=== PATIENT | female | born 1955 | race Two or more races ===

== ENCOUNTER 2024-02-24 01:15 | Inpatient (IN) | payer OTHER ==
[~2024-02-24] VITALS: Ht 157.5 cm; Wt 59.9 kg
[2024-02-24] MEDS ORDERED: PRISTIQ25 MG PO (02:05)
[2024-02-24] MEDS ORDERED: SYNTHROID75 MCG PO (02:05)
[2024-02-24] MEDS ORDERED: DIOVAN40 MG PO (02:05)
[2024-02-24] MEDS ORDERED: PEPCID AC20 MG (02:05)
[2024-02-24] MEDS ORDERED: PROTONIX20 MG PO (02:05)
[2024-02-24] MEDS ORDERED: ESTAZOLAM2 MG PO (02:06)
[2024-02-24] MEDS ORDERED: BUSPIRONE HCL15 MG PO (02:06)
[2024-02-24] MEDS ORDERED: TRAZODONE HCL150 MG PO (02:07)
[2024-02-24] MEDS ORDERED: 0.9 % SODIUM CHLORIDE 1,000 ML IV ONE (04:30)
[2024-02-24 05:16] LABS: HEMATOCRIT 35.7 % (36.0-45.00); MEAN CELL VOLUME 84.3 fL (80.00-100.00); MEAN CORPUSCULAR HGB CONC 33.2 g/dl (32.0-36.0); RED BLOOD COUNT 4.24 M/uL (4.00-6.00); RED CELL DISTRIBUTION WIDTH 14.9 % (11.5-14.5)
[2024-02-24 05:18] LABS: HEMOGLOBIN 11.9 g/dL (12.0-15.00); PLATELET COUNT 516 K/uL (150-450)
[2024-02-24 05:27] LABS: PARTIAL THROMBOPLASTIN TIME 23.3 SECONDS (22.0-34.0); PROTHROMBIN TIME 10.9 SECONDS (9.0-11.5)
[2024-02-24 05:30] LABS: ALBUMIN 2.9 gm/dL (3.4-5.0); BILIRUBIN TOTAL 0.24 mg/dL (0.3-1.2); CALCIUM 10.3 mg/dL (8.5-10.1); CREATININE SERUM 0.62 mg/dL (0.55-1.02); GFR 95.16; POTASSIUM 3.59 mEq/L (3.5-5.1); TOTAL PROTEIN 7.9 gm/dL (6.4-8.2)
[2024-02-24 05:51] LABS: URINE APPEARANCE Cloudy; URINE BILIRRUBIN Negative (NEGATIVE); URINE BLOOD Moderate; URINE COLOR Yellow; URINE GLUCOSE Negative (NEGATIVE); URINE KETONE Negative (NEGATIVE); URINE LEUKOCYTE Large; URINE NITRATE Negative; URINE PROTEIN 30 (NEGATIVE)
[2024-02-24 05:54] LABS: URINE EPITHELIAL CELLS 15.9 uL (0.0-38.8); URINE RBC 256.2 uL (0.0-20.8)
[2024-02-24 06:01] LABS: URINE CAST 0.76 uL (0.0-1.40)
[2024-02-24] MEDS ORDERED: CEFTRIAXONE SODIUM 1,000 MG VIAL IV STA (06:27)
[2024-02-24] MEDS ORDERED: FAMOTIDINE/PF 20 MG/2 ML VIAL IV SCH (13:41)
[2024-02-24] MEDS ORDERED: MORPHINE SULFATE 2 MG/ML CARTRIDGE IV PRN (13:45)
[2024-02-24] MEDS ORDERED: RINGERS SOLUTION,LACTATED 1,000 ML IV SCH (13:45)
[2024-02-24] MEDS ORDERED: PIPERACILLIN/TAZOBACTAM SODIUM 3.375 GM in DEXTROSE 5 % IN WATER 100 ML IV SCH (14:00)
[2024-02-24] MEDS ORDERED: VANCOMYCIN HCL 1,000 MG VIAL IV STA (14:02)
[2024-02-24] MEDS ORDERED: BUSPIRONE HCL 15 MG TABLET PO STA (16:21)
[2024-02-24] MEDS ORDERED: PANTOPRAZOLE SODIUM 40 MG TABLET.DR PO SCH (16:23)
[2024-02-24] MEDS ORDERED: AA 4.25%/CAL/LYTES/DEXT 5% 1,000 ML PERIFERAL SCH (17:00)
[2024-02-24] MEDS ORDERED: TRAZODONE HCL 50 MG TABLET PO SCH (21:00)
[2024-02-24] MEDS ORDERED: TEMAZEPAM 15 MG CAPSULE PO SCH (21:00)
[2024-02-25] MEDS ORDERED: LEVOTHYROXINE SODIUM 75 MCG TABLET PO SCH (06:00)
[2024-02-25] MEDS ORDERED: LOSARTAN POTASSIUM 25 MG TABLET PO SCH (09:00)
[2024-02-25] MEDS ORDERED: BUSPIRONE HCL 15 MG TABLET PO SCH ×2 (09:00→21:29)
[2024-02-25 09:09] VITALS: BP 131/68; O2SAT 97
[2024-02-25] MEDS ORDERED: LACTOBACILLUS ACIDOPHILUS 1 CAP CAP PO SCH (14:10)
[2024-02-25 16:00] VITALS: BP 133/70; O2SAT 96
[2024-02-26 00:35] VITALS: BP 126/67; O2SAT 93
[2024-02-26 09:05] VITALS: BP 115/65; O2SAT 97
[2024-02-26 11:44] LABS: HEMATOCRIT 30.9 % (36.0-45.00); HEMOGLOBIN 10.4 g/dL (12.0-15.00); MEAN CELL VOLUME 84.9 fL (80.00-100.00); MEAN CORPUSCULAR HEMOGLOBIN 28.5 pg (27.00-32.0); MEAN CORPUSCULAR HGB CONC 33.5 g/dl (32.0-36.0); PLATELET COUNT 410 K/uL (150-450); RED BLOOD COUNT 3.64 M/uL (4.00-6.00); RED CELL DISTRIBUTION WIDTH 14.7 % (11.5-14.5)
[2024-02-26] MEDS ORDERED: MEROPENEM 500 MG/VIAL VIAL IV SCH (12:00)
[2024-02-26 12:10] LABS: ALBUMIN 2.5 gm/dL (3.4-5.0); BILIRUBIN TOTAL 0.45 mg/dL (0.3-1.2); CREATININE SERUM 0.49 mg/dL (0.55-1.02); GFR 124.85; GLOBULINA 3.8 G/DL (2.4-3.5); MAGNESIUM 1.7 mg/dL (1.8-2.4); PHOSPHOROUS 4.2 mg/dL (2.5-4.9); POTASSIUM 4.37 mEq/L (3.5-5.1); TOTAL PROTEIN 6.3 gm/dL (6.4-8.2)
[2024-02-26 18:04] VITALS: BP 142/69; O2SAT 98
[2024-02-26] MEDS ORDERED: MAGNESIUM SULFATE IN WATER 50 ML IV ONE (21:00)
[2024-02-27 05:12] VITALS: BP 120/66; O2SAT 97
[2024-02-27 06:24] LABS: HEMATOCRIT 28.8 % (36.0-45.00); HEMOGLOBIN 9.9 g/dL (12.0-15.00); MEAN CELL VOLUME 84.1 fL (80.00-100.00); MEAN CORPUSCULAR HEMOGLOBIN 28.8 pg (27.00-32.0); MEAN CORPUSCULAR HGB CONC 34.3 g/dl (32.0-36.0); PLATELET COUNT 387 K/uL (150-450); RED BLOOD COUNT 3.42 M/uL (4.00-6.00); RED CELL DISTRIBUTION WIDTH 14.5 % (11.5-14.5)
[2024-02-27 08:20] LABS: ALBUMIN 2.3 gm/dL (3.4-5.0); BILIRUBIN TOTAL 0.34 mg/dL (0.3-1.2); CALCIUM 9.2 mg/dL (8.5-10.1); CREATININE SERUM 0.43 mg/dL (0.55-1.02); GFR 145.16; GLOBULINA 3.6 G/DL (2.4-3.5); POTASSIUM 3.98 mEq/L (3.5-5.1); TOTAL PROTEIN 5.9 gm/dL (6.4-8.2)
[2024-02-27 08:22] VITALS: BP 133/67; O2SAT 96
[2024-02-27] MEDS ORDERED: PANTOPRAZOLE SODIUM 40 MG/VIAL VIAL IV SCH (09:00)
[2024-02-27 15:37] LABS: URINE APPEARANCE Clear; URINE BILIRRUBIN Negative (NEGATIVE); URINE BLOOD Negative; URINE COLOR Yellow; URINE GLUCOSE Negative (NEGATIVE); URINE KETONE Negative (NEGATIVE); URINE LEUKOCYTE Large; URINE NITRATE Negative; URINE PROTEIN Negative (NEGATIVE); URINE UROBILINOGEN 0.2 E.U./dl
[2024-02-27 15:42] LABS: URINE BACTERIA 65.4 uL (0.0-1933); URINE EPITHELIAL CELLS 15.9 uL (0.0-38.8); URINE RBC 10.5 uL (0.0-20.8); URINE WBC 372.7 uL (0.0-23.2)
[2024-02-27 16:24] VITALS: BP 149/73
[2024-02-27] MEDS ORDERED: PATIENTS OWN MEDICATION (MEDICAMENTO EN PISO) PO SCH (21:00)
[2024-02-28 01:56] VITALS: BP 120/60; BP 152/64; O2SAT 97; O2SAT 98
[2024-02-28 07:57] VITALS: BP 137/69; O2SAT 95
[2024-02-28] MEDS ORDERED: LOSARTAN POTASSIUM 50 MG TABLET PO SCH (09:00)
[2024-02-28] MEDS ORDERED: ENOXAPARIN SODIUM 40 MG/0.4 ML SYRINGE SUBCUTANEO SCH (09:00)
[2024-02-28] MEDS ORDERED: FLUCONAZOLE 150 MG TABLET PO ONE (12:15)
[2024-02-28 17:08] VITALS: BP 158/75
[2024-02-28] MEDS ORDERED: NYSTATIN 100,000 UNITS/ML ML PO SCH (21:21)
[2024-02-29] VITALS: BP 148/74; O2SAT 95
[2024-02-29] MEDS ORDERED: DIATRIZOATE MEGLUMINE, SODIUM 30 ML BOTTLE PO NR (06:00)
[2024-02-29] MEDS ORDERED: IRBESARTAN 150 MG TABLET PO SCH (09:00)
[2024-02-29 10:01] VITALS: BP 176/89; O2SAT 97
[2024-02-29] MEDS ORDERED: AMLODIPINE BESYLATE 5 MG TABLET PO SCH (12:11)
[2024-02-29 16:08] LABS: INR 1.08; PARTIAL THROMBOPLASTIN TIME 31.8 SECONDS (22.0-34.0); PROTHROMBIN TIME 11.7 SECONDS (9.0-11.5)
[2024-02-29 16:18] LABS: ALBUMIN 2.5 gm/dL (3.4-5.0); BILIRUBIN TOTAL 0.38 mg/dL (0.3-1.2); BILIRUBIN,CONJUGATED 0.16 mg/dL (0.0-0.2); BILIRUBIN,UNCONJUGATED 0.22 mg/dL (0.0-0.6); CALCIUM 9.4 mg/dL (8.5-10.1); CHOL HDL RATIO 5.3 (0-5.0); CREATININE SERUM 0.44 mg/dL (0.55-1.02); GFR 141.36; GLOBULINA 3.9 G/DL (2.4-3.5); MAGNESIUM 1.9 mg/dL (1.8-2.4); POTASSIUM 3.94 mEq/L (3.5-5.1); TOTAL PROTEIN 6.4 gm/dL (6.4-8.2)
[2024-02-29 17:32] VITALS: BP 182/63
[2024-02-29 17:47] LABS: UREA CLEARANCE 35.3 ML/MIN
[2024-02-29] MEDS ORDERED: hydrALAZINE HCL 20 MG VIAL IV PRN (19:45)
[2024-02-29] MEDS ORDERED: AMLODIPINE BESYLATE 10 MG TABLET PO ONE (20:45)
[2024-03-01 00:44] VITALS: BP 140/56; O2SAT 95
[2024-03-01 06:38] LABS: HEMATOCRIT 28.8 % (36.0-45.00); MEAN CELL VOLUME 82.2 fL (80.00-100.00); MEAN CORPUSCULAR HEMOGLOBIN 28.5 pg (27.00-32.0); MEAN CORPUSCULAR HGB CONC 34.7 g/dl (32.0-36.0); PLATELET COUNT 382 K/uL (150-450); RED CELL DISTRIBUTION WIDTH 14.5 % (11.5-14.5)
[2024-03-01 07:02] LABS: ERYTHROCYTE SEDIMENTATION RATE 77 mm/hr
[2024-03-01 07:19] LABS: ALBUMIN 2.4 gm/dL (3.4-5.0); BILIRUBIN TOTAL 0.32 mg/dL (0.3-1.2); CALCIUM 9.4 mg/dL (8.5-10.1); CREATININE SERUM 0.38 mg/dL (0.55-1.02); GFR 167.42; GLOBULINA 3.5 G/DL (2.4-3.5); POTASSIUM 3.94 mEq/L (3.5-5.1); TOTAL PROTEIN 5.9 gm/dL (6.4-8.2)
[2024-03-01 07:20] LABS: C-REACTIVE PROTEIN 8.1 MG/DL (0.00-0.29)
[2024-03-01 08:42] VITALS: BP 113/65
[2024-03-01] MEDS ORDERED: AMLODIPINE BESYLATE 10 MG TABLET PO SCH (09:00)
[2024-03-01] MEDS ORDERED: AMLODIPINE BESYLATE 5 MG TABLET PO SCH (09:00)
[2024-03-01] MEDS ORDERED: AMINO ACIDS/PROTEIN HYDROLYS 30 ML BLIST.PACK PO SCH (13:00)
[2024-03-01 16:41] VITALS: BP 142/65; O2SAT 98
[2024-03-02 00:46] VITALS: BP 145/73; O2SAT 92
[2024-03-02] MEDS ORDERED: BENZONATATE 100 MG CAPSULE PO SCH (01:00)
[2024-03-02 09:04] VITALS: BP 136/71; O2SAT 99
[2024-03-02 16:34] VITALS: BP 146/70; O2SAT 99
[2024-03-03 02:00] VITALS: BP 160/75; O2SAT 97
[2024-03-03 07:20] LABS: ALBUMIN 2.4 gm/dL (3.4-5.0); BILIRUBIN TOTAL 0.3 mg/dL (0.3-1.2); CALCIUM 9.1 mg/dL (8.5-10.1); CREATININE SERUM 0.38 mg/dL (0.55-1.02); GFR 167.42; GLOBULINA 3.8 G/DL (2.4-3.5); MAGNESIUM 2.1 mg/dL (1.8-2.4); POTASSIUM 4.08 mEq/L (3.5-5.1); TOTAL PROTEIN 6.2 gm/dL (6.4-8.2)
[2024-03-03 08:22] VITALS: BP 126/67; O2SAT 97
[2024-03-03] MEDS ORDERED: MOMETASONE FUROATE 17GM SPRAY NASAL SCH (09:57)
[2024-03-03] MEDS ORDERED: LORATADINE 10 MG TABLET PO NR (11:00)
[2024-03-03 18:11] VITALS: BP 146/80; O2SAT 98
[2024-03-04 01:23] VITALS: BP 121/60
[2024-03-04 09:00] VITALS: BP 127/66; O2SAT 96
[2024-03-04] MEDS ORDERED: LORATADINE 10 MG TABLET PO SCH (09:00)
[2024-03-04 09:49] LABS: HEMOGLOBIN 10.4 g/dL (12.0-15.00); MEAN CELL VOLUME 83.2 fL (80.00-100.00); MEAN CORPUSCULAR HGB CONC 33.7 g/dl (32.0-36.0); PLATELET COUNT 347 K/uL (150-450); RED BLOOD COUNT 3.73 M/uL (4.00-6.00); RED CELL DISTRIBUTION WIDTH 14.2 % (11.5-14.5)
[2024-03-04] MEDS ORDERED: INTESTINEX680 M1 PO (14:52)
[2024-03-04] MEDS ORDERED: ZYRTEC10 M3 PO (14:54)
[2024-03-04] MEDS ORDERED: NASONEX 24HR AL17 ML NASAL (14:55)
== END 2024-03-04 17:45 | disposition home or self-care (01) | DRG 392 ==
LOC: ER 01:16 → MEDI 17:02 → MEDJ 17:02 → SEC-K 17:59 → MEDI 02-25 03:00
PROVIDERS: General Practice; Internal Medicine; Student in an Organized Health Care Education/Training Program; ADMIT Internal Medicine; ATTEND Internal Medicine
PROC: BW21YZZ Computerized Tomography (CT Scan) of Abdomen and Pelvis using Other Contrast (ICD-10-PCS; principal; 2024-02-24)
PROC: 02HV33Z Insertion of Infusion Device into Superior Vena Cava, Percutaneous Approach (ICD-10-PCS; 2024-02-25)
PROC: BW21YZZ Computerized Tomography (CT Scan) of Abdomen and Pelvis using Other Contrast (ICD-10-PCS; 2024-02-29)
DX: K57.20 Diverticulitis of large intestine with perforation and abscess without bleeding (principal); N32.1 Vesicointestinal fistula; D72.829 Elevated white blood cell count, unspecified; D64.9 Anemia, unspecified; D75.839 Thrombocytosis, unspecified; E83.52 Hypercalcemia; I10 Essential (primary) hypertension; E03.9 Hypothyroidism, unspecified; F43.21 Adjustment disorder with depressed mood; B37.9 Candidiasis, unspecified; N93.9 Abnormal uterine and vaginal bleeding, unspecified

== ENCOUNTER 2024-05-27 11:15 | Inpatient (IN) | payer OTHER ==
[~2024-05-27] VITALS: Ht 61 cm; Wt 59.0 kg
[~2024-05-27 11:15] MED LIST: BUSPIRONE HCL15 MG PO; DIOVAN40 MG PO; ESTAZOLAM2 MG PO; INTESTINEX680 M1 PO; NASONEX 24HR AL17 ML NASAL; PEPCID AC20 MG; PRISTIQ25 MG PO; PROTONIX20 MG PO; SYNTHROID75 MCG PO; TRAZODONE HCL150 MG PO; ZYRTEC10 M3 PO
[2024-05-27] MEDS ORDERED: CRESTOR40 MG PO (13:45)
[2024-06-02] MEDS ORDERED: CEFTRIAXONE SODIUM 2,000 MG VIAL ONE (10:50)
[2024-06-02] MEDS ORDERED: LIDOCAINE HCL 1%/EPINEPHRINE 20ML VIAL IJ ONE ×2 (10:50→12:25)
[2024-06-02] MEDS ORDERED: METRONIDAZOLE/SODIUM CHLORIDE 500 MG/100 ML PIGGYBACK IV ONE (10:50)
[2024-06-02] MEDS ORDERED: VALSARTAN-HCTZ1 EAC3 (11:18)
[2024-06-02] MEDS ORDERED: DESVENLAFAXINE50 M3 (11:18)
[2024-06-02] MEDS ORDERED: PANTOPRAZOLE SO40 MG (11:18)
[2024-06-02] MEDS ORDERED: CLORAZEPATE D3.75 MG (11:18)
[2024-06-02] MEDS ORDERED: ONDANSETRON HCL 2 MG/ML VIAL IV PRN (15:00)
[2024-06-02] MEDS ORDERED: 0.9 % SODIUM CHLORIDE 1,000 ML IV SCH (15:00)
[2024-06-02] MEDS ORDERED: MORPHINE SULFATE 4 MG/ML CARTRIDGE IV PRN (15:00)
[2024-06-02] MEDS ORDERED: OxyCODONE HCL 5 MG TABLET (ROXICODONE) PO PRN (15:00)
[2024-06-02] MEDS ORDERED: DEXTROSE 50 % IN WATER 0.5 G/ML DISP.SYRIN IV PRN (15:00)
[2024-06-02] MEDS ORDERED: MORPHINE SULFATE 4 MG/ML VIAL IV ONE ×3 (15:45→16:45)
[2024-06-02 16:17] LABS: HEMATOCRIT 31.7 % (36.0-45.00); HEMOGLOBIN 10.7 g/dL (12.0-15.00); MEAN CORPUSCULAR HEMOGLOBIN 28.7 pg (27.00-32.0); MEAN CORPUSCULAR HGB CONC 33.7 g/dl (32.0-36.0); PLATELET COUNT 263 K/uL (150-450); RED BLOOD COUNT 3.73 M/uL (4.00-6.00); RED CELL DISTRIBUTION WIDTH 15.3 % (11.5-14.5)
[2024-06-02 16:46] LABS: ALBUMIN 2.9 gm/dL (3.4-5.0); CALCIUM 9.2 mg/dL (8.5-10.1); CREATININE SERUM 0.61 mg/dL (0.55-1.02); GFR 96.68; PHOSPHOROUS 3.9 mg/dL (2.5-4.9); POTASSIUM 3.3 mEq/L (3.5-5.1)
[2024-06-02] MEDS ORDERED: POLYETHYLENE GLYCOL 3350 17 GM BLIST.PACK PO SCH (17:00)
[2024-06-02] MEDS ORDERED: GABAPENTIN 300 MG CAPSULE PO SCH (17:00)
[2024-06-02] MEDS ORDERED: HYOSCYAMINE SULFATE 0.125 MG TAB.SUBL SL SCH (17:00)
[2024-06-02 17:03] LABS: MAGNESIUM 1.3 mg/dL (1.8-2.4)
[2024-06-02] MEDS ORDERED: ACETAMINOPHEN 500 MG GEL..CAP PO SCH (20:00)
[2024-06-02] MEDS ORDERED: FAMOTIDINE/PF 20 MG/2 ML VIAL IV PUSH SCH (21:00)
[2024-06-02] MEDS ORDERED: CELECOXIB 200 MG CAPSULE PO SCH (21:00)
[2024-06-02] MEDS ORDERED: ESTAZOLAM PO SCH (23:45)
[2024-06-03 00:50] VITALS: BP 135/66; O2SAT 100
[2024-06-03] MEDS ORDERED: MORPHINE SULFATE 4 MG/ML CARTRIDGE IV ONE (07:15)
[2024-06-03 08:00] VITALS: BP 117/71; O2SAT 100
[2024-06-03] MEDS ORDERED: MAGNESIUM SULFATE IN WATER 2 GM/50 ML PIGGYBAG IV SCH ×2 (08:00→12:00)
[2024-06-03] MEDS ORDERED: MAGNESIUM SULFATE 50% 1,000 MG/2 ML VIAL IV SCH (08:00)
[2024-06-03] MEDS ORDERED: PANTOPRAZOLE SODIUM 40 MG TABLET.DR PO SCH (09:00)
[2024-06-03] MEDS ORDERED: CYCLOBENZAPRINE HCL 5 MG TABLET PO SCH (09:00)
[2024-06-03] MEDS ORDERED: LIDOCAINE 1 EACH ADH..PATCH TOP SCH (09:00)
[2024-06-03] MEDS ORDERED: POTASSIUM CHLORIDE IN 0.9%NACL 1,000 ML IV NR (12:00)
[2024-06-03] MEDS ORDERED: POTASSIUM CHLORIDE/D5-0.45NACL 1,000 ML IV NR (12:00)
[2024-06-03 12:46] LABS: HEMATOCRIT 33.4 % (36.0-45.00); HEMOGLOBIN 11.5 g/dL (12.0-15.00); MEAN CELL VOLUME 83.3 fL (80.00-100.00); MEAN CORPUSCULAR HEMOGLOBIN 28.8 pg (27.00-32.0); MEAN CORPUSCULAR HGB CONC 34.5 g/dl (32.0-36.0); PLATELET COUNT 259 K/uL (150-450); RED BLOOD COUNT 4.01 M/uL (4.00-6.00); RED CELL DISTRIBUTION WIDTH 15.3 % (11.5-14.5)
[2024-06-03 13:58] LABS: ALBUMIN 2.9 gm/dL (3.4-5.0); CREATININE SERUM 0.6 mg/dL (0.55-1.02); GFR 98.55; PHOSPHOROUS 4.2 mg/dL (2.5-4.9); POTASSIUM 3.59 mEq/L (3.5-5.1)
[2024-06-03 14:20] LABS: MAGNESIUM 1.2 mg/dL (1.8-2.4)
[2024-06-03 16:04] VITALS: BP 93/55; O2SAT 95
[2024-06-03] MEDS ORDERED: PATIENTS OWN MEDICATION (MEDICAMENTO EN PHA) PO SCH (17:00)
[2024-06-03] MEDS ORDERED: ENOXAPARIN SODIUM 40 MG/0.4 ML SYRINGE SUBCUTANEO SCH (17:00)
[2024-06-03] MEDS ORDERED: PATIENTS OWN MEDICATION (MEDICAMENTO EN PISO) PO SCH (21:00)
[2024-06-04 01:00] VITALS: BP 104/51; O2SAT 100
[2024-06-04] MEDS ORDERED: LEVOTHYROXINE SODIUM 75 MCG TABLET PO SCH (06:00)
[2024-06-04 08:00] VITALS: BP 107/56; O2SAT 100
[2024-06-04] MEDS ORDERED: ENOXAPARIN SODIUM 40 MG/0.4 ML SYRINGE SUBCUTANEO SCH (09:00)
[2024-06-04] MEDS ORDERED: MAGNESIUM SULFATE IN WATER 4 GM/100 ML PIGGYBACK IV STA (11:09)
[2024-06-04 12:39] LABS: CALCIUM 8.4 mg/dL (8.5-10.1); CREATININE SERUM 0.51 mg/dL (0.55-1.02); GFR 118.87; MAGNESIUM 2.2 mg/dL (1.8-2.4); PHOSPHOROUS 2.5 mg/dL (2.5-4.9); POTASSIUM 3.99 mEq/L (3.5-5.1)
[2024-06-04 16:24] VITALS: BP 131/59; O2SAT 96
[2024-06-05 00:41] VITALS: BP 130/67; O2SAT 97
[2024-06-05 07:55] LABS: HEMOGLOBIN 9.2 g/dL (12.0-15.00); MEAN CELL VOLUME 86.4 fL (80.00-100.00); MEAN CORPUSCULAR HEMOGLOBIN 29.4 pg (27.00-32.0); PLATELET COUNT 238 K/uL (150-450); RED BLOOD COUNT 3.12 M/uL (4.00-6.00); RED CELL DISTRIBUTION WIDTH 14.7 % (11.5-14.5)
[2024-06-05 08:00] VITALS: BP 125/64; O2SAT 99
[2024-06-05 08:07] LABS: ALBUMIN 2.4 gm/dL (3.4-5.0); BILIRUBIN TOTAL 0.27 mg/dL (0.3-1.2); CALCIUM 8.2 mg/dL (8.5-10.1); CREATININE SERUM 0.59 mg/dL (0.55-1.02); GFR 100.48; GLOBULINA 3.2 G/DL (2.4-3.5); POTASSIUM 3.9 mEq/L (3.5-5.1); TOTAL PROTEIN 5.6 gm/dL (6.4-8.2)
[2024-06-05 16:25] VITALS: BP 149/76; O2SAT 100
[2024-06-06 00:45] VITALS: BP 137/75; O2SAT 100
[2024-06-06] MEDS ORDERED: CYCLOBENZAPRINE5 MG PO (12:37)
[2024-06-06] MEDS ORDERED: PEPCID AC20 MG PO (12:37)
[2024-06-06] MEDS ORDERED: HYOSCYAMINE0.125 M1 SL (12:37)
[2024-06-06] MEDS ORDERED: TRAM1TAB98 PO (12:38)
== END 2024-06-07 08:38 | disposition home or self-care (01) | DRG 330 ==
LOC: O/R 06-02 07:32 → SURH 06-02 07:32
PROVIDERS: Internal Medicine; ADMIT Surgery; ATTEND Surgery
PROC: 0DBP4ZZ Excision of Rectum, Percutaneous Endoscopic Approach (ICD-10-PCS; 2024-06-02)
PROC: 0DTN4ZZ Resection of Sigmoid Colon, Percutaneous Endoscopic Approach (ICD-10-PCS; 2024-06-02)
PROC: 0UQG4ZZ Repair Vagina, Percutaneous Endoscopic Approach (ICD-10-PCS; 2024-06-02)
PROC: 0DJD8ZZ Inspection of Lower Intestinal Tract, Via Natural or Artificial Opening Endoscopic (ICD-10-PCS; 2024-06-02)
PROC: 0DT84ZZ Resection of Small Intestine, Percutaneous Endoscopic Approach (ICD-10-PCS; principal; 2024-06-02 14:15)
DX: K57.20 Diverticulitis of large intestine with perforation and abscess without bleeding (principal); K63.2 Fistula of intestine; N82.3 Fistula of vagina to large intestine; R59.0 Localized enlarged lymph nodes; I10 Essential (primary) hypertension; E11.65 Type 2 diabetes mellitus with hyperglycemia; Z79.4 Long term (current) use of insulin; E03.9 Hypothyroidism, unspecified; F32.A Depression, unspecified